=== PATIENT | male | born 1990 | race Caucasian/White ===

== ENCOUNTER → 2020-01-18 12:14 | Outpatient (CLI) | payer OTHER, SELFPAY ==
--- NOTE | ~2020-01-18 | XR_ITS ---
EXAMINATION: XR ankle LT min 3V DATE: 01/18/2020 12:54 INDICATION: Left ankle pain. TECHNIQUE: 4 views of left ankle were obtained. COMPARISON: None. FINDINGS: Pes planus is noted. No fracture. Joint spaces are normal. There is an enthesophyte at plan tar aspect of calcaneal tuberosity. IMPRESSION: 1. Pes planus. Reviewed, dictated and finalized at location A. IMPRESSION: 1. Pes planus.
== END ==
PROVIDERS: PCP Family Medicine; Visit Provider Family Medicine
DX: M25.572 Pain in left ankle and joints of left foot (principal); M21.42 Flat foot [pes planus] (acquired), left foot
CPT/HCPCS: 73610

== ENCOUNTER 2022-08-19 12:14 | Emergency (ER) | payer BC, SELFPAY ==
--- NOTE | 2022-08-19 12:20 | ED.SKABFB ---
HPI - Skin/Abscess/Foreign Bdy General Chief complaint: Skin/Abscess/Foreign Body Stated complaint: Rash Time Seen by Provider: 08/19/22 12:20 Source: patient Mode of arrival: ambulatory Limitations: no limitations History of Present Illness HPI narrative: patient is a 32-year-old male who presents with diffuse rash to trunk and bilateral arms for 1 week. Patient denies any pain or itching to rash. States it started on the right side of his upper abdomen and has spread. Denies any new detergents, soaps, clothing. Has not slept anywhere abnormal. Denies any shortness of breath, tongue swelling, lip swelling. Denies any fever, chills, nausea, vomiting, diarrhea. Has used Benadryl with no change in symptoms. Related Data Allergies Allergy/AdvReac Type Severity Reaction Status Date / Time No Known Allergies Allergy Verified 08/19/22 12:37 Review of Systems Review of Systems: All systems reviewed & are unremarkable except as noted in HPI and below Constitutional: Constitutional: Denies body ache(s), Denies chills, Denies fatigue, Denies fever(s), Denies headache(s), Denies malaise and Denies weakness Eyes: Eyes: Denies blurry vision, Denies irritation and Denies loss of vision ENT: Denies otalgia, Denies headache(s), Denies nasal discharge, Denies sinus pain and Denies sore throat Cardiovascular: Cardiovascular: Denies chest pain, Denies irregular heart rhythm and Denies dyspnea Respiratory: Respiratory: Denies dyspnea Gastrointestinal: Gastrointestinal: Denies abdominal pain, Denies melena, Denies hematochezia, Denies diarrhea, Denies nausea and Denies vomiting Musculoskeletal: Musculoskeletal: Denies back pain, Denies myalgias and Denies arthralgias Integumentary/Breasts: Skin/Breast: Denies pruritus and Reports rash Neurologic: Denies headache(s), Denies loss of vision and Denies weakness Psychiatric: Psychiatric: Reports no additional psychiatric complaints Endocrine: Endocrine: Denies fatigue PMFSH Comments At time of signature, agree with nursing past medical, surgical, social and family history. There is no relevant family history pertinent to the presenting complaint. Exam Const: General: cooperative, healthy appearing, comfortable, no acute distress and well nourished Nutritional Appearance: well nourished Orientation/consciousness: patient oriented x3 Limitations: no limitations HENMT: Head: normal to inspection, normocephalic and atraumatic Ears: hearing grossly normal bilaterally and external ears normal Face/Nose/Sinus: Normal external nose present, normal facial exam and face symmetric Face and sinus: normal facial exam and face symmetric Mouth: Yes lip normal Eyes: General: appearance normal, both eyes and all related structures Alignment and Position: alignment normal and position normal Periorbital: periorbital findings normal Eyelids: eyelids normal Pupils: Equal, round and reactive pupils present EOM: EOMs intact bilaterally Neck: Neck: normal visual inspection, full ROM and supple Chest: Chest palpation & inspection: normal inspection of the chest Resp: Effort & Inspection: normal respiratory effort and able to speak in complete sentences Auscultation: clear to auscultation bilaterally Cardio: Rate: regular rate Rhythm: regular rhythm Heart sounds: S1 normal heart sound present and S2 normal heart sound present GI: Inspection: normal to inspection Skin: General skin exam: normal color and no rashes or lesions noted Rashes: rashes noted ( Small, raised, scaly patches with sizes 0.5 cm to 1.5 cm ) patches diffuse full body arrangement ( clusters noted to right upper abdomen, diffuse across wrist of abdomen, back and upper extremities) clustered, borders raised, color red, morphology round and surface dry, erythematous, rough and scaly Neuro: General: patient oriented x3 and moves all extremities Cranial nerves: Yes Equal, round and reactive pupils present Speech: normal speech G
[2022-08-19 12:27] VITALS: BP 125/74; PULSE 64; RESP 16; TEMP 36.4; O2SAT 100
== END 2022-08-19 13:11 | disposition home or self-care (01) ==
PROVIDERS: Emergency Provider Nurse Practitioner Family
DX: L42 Pityriasis rosea (principal)
CPT/HCPCS: 87081; 87880; 99213; G0463

== ENCOUNTER 2024-12-15 13:24 | Emergency (ER) | payer BC, SELFPAY ==
[2024-12-15 13:32] VITALS: BP 131/93; PULSE 77; RESP 16; TEMP 36.3; O2SAT 100
--- NOTE | 2024-12-15 13:37 | ED_ITS ---
HPI - Extremity Problem General Chief complaint: Extremity Problem,Nontraumatic Stated complaint: R Foot Pain Time Seen by Provider: 12/15/24 13:37 Source: patient Mode of arrival: ambulatory Limitations: no limitations History of Present Illness HPI Narrative: 34-year-old male presented for complaint of right foot pain, redness and swelling over the midfoot. Worsening over the past 5 days. Denies known injury or overuse. Reports painful range of motion. Denies numbness, tingling or weakness of the foot. Has taken ibuprofen with minimal relief. Endorses a history of gout and plantar fasciitis. Denies changes to diet. Pt takes allopurinol for hx gout. Related Data Home Medications ?Medication ?Instructions ?Recorded ?Confirmed ?Last Taken ?Type allopurinol 100 mg tablet mg 12/15/24 12/15/24 Histor y Allergies Allergy/AdvReac Type Severity Reaction Status Date / Time No Known Allergies Allergy Verified 12/15/24 13:37 Review of Systems Review of Systems: CONSTITUTIONAL: Denies body aches, fever, chills EYES: Denies visual changes ENT: Denies rhinorrhea, congestion CARDIOVASCULAR: Denies chest pain, palpitations, or edema. RESPIRATORY: Denies cough or dyspnea. SKIN: Denies rash, itching, or wounds. MUSCULOSKELETAL: reports right foot pain redness and swelling NEUROLOGIC: Denies headache, numbness, tingling, or weakness. All systems reviewed & are unremarkable except as noted in HPI and below PMFSH Past Medical History Medical History (Updated 12/15/24 @ 13:53 by Miladis Gomes, SHYANN) Gout Comments At time of signature, I have reviewed and agree with nursing past medical, surgical, social and family history unless otherwise noted. Please see nursing chart for further information. There is no relevant family history pertinent to the presenting complaint Exam Narrative: GENERAL: Well-appearing CHEST: Speaks in full sentences. No respiratory distress. HEART: Regular rate and rhythm. Normal and equal peripheral pulses. EXTREMITIES: Right mid dorsal foot erythematous with moderate swelling, tender with palpation. Decreased ROM at ankle due to the foot pain. Foot has normal strength and sensation. No ecchymosis, No open wounds, or obvious deformity; alignment normal, pulse palpable and equal bilaterally, skin warm, dry, pink. Capillary refill less than 3 seconds. SKIN: Warm, dry, no rash. NEURO: Alert and oriented x3. PSYCH: Normal mood and affect Course Course Emergency Course: Patient is aware of diagnosis, understands and agrees to treatment plan. Anticipatory guidance given. Patient agrees to follow-up as directed and is aware of reasons to seek care at the emergency department. Portions of this record may have been created with voice recognition software Level of Care: Express Care Visit Vital Signs Vital signs: Vital Signs Temperature 97.3 F L 12/15/24 13:32 Pulse Rate 77 12/15/24 13:32 Respiratory Rate 16 12/15/24 13:32 Blood Pressure 131/93 H 12/15/24 13:32 Pulse Oximetry 100 12/15/24 13:32 Temperature 97.3 F L 12/15/24 13:32 Pulse Rate 77 12/15/24 13:32 Respiratory Rate 16 12/15/24 13:32 Blood Pressure 131/93 H 12/15/24 13:32 Pulse Oximetry 100 12/15/24 13:32 Reviewed MDM - Extremity (Nontraumatic) MDM Narrative Medical decision making narrative: Discussed physical exam findings. Advised supportive measures and signs/symptoms to go to the ER. Pt is appropriate for outpt treatment and f/u. Differential Diagnosis Differential diagnosis: Likely herpes zoster, gout, cellulitis, superficial thrombophlebitis, deep vein thrombosis of lower extremity and other (Plantar fasciitis, heel spur, foot strain/sprain, metatarsal fracture, metatarsalgia, palacio's neuroma) Discharge Plan Discharge Clinical Impression: Acute pain of right foot Patient Disposition: Home Condition: Stable Instructions: Antibiotic Form, Gout (ED) Additional Instructions: Gout is a form of inflammatory?arthritis that causes pain and swelling in your joints. A buildup of excess uric acid in your body causes gout. Your body naturally makes uric acid when it breaks down chemicals called purines found in certain foods and drinks. Your kidneys usually filter uric acid out of your blood. Gout symptoms come and go in episodes called flares or gout attacks.?Gout attac ks usually last a week or two. You might have some flares that last longer than others, and some might cause more severe symptoms. Between attacks, you might not experience any gout symptoms. Risks include: Parent/grandparent with gout Eating a lot of animal proteins ? especially animal flesh, shellfish and foods that contain organ meat. Drinking alcohol regularly. Taking a diuretic medication (water pills). Taking immunosuppressants Take medication as directed You can take tylenol for pain as needed Recommend low purine diet Rest and elevate the right foot Follow up with primary care provider in 1 week Go to the ER for worsening symptoms or concerns Patient Language: Maltese Prescriptions: New prednisone 20 mg tablet 20 mg PO DAILY Qty: 18 0RF Rx Instructions: take 3 tablets daily for 3 days, then 2 tablets daily for 3 days then 1 tablet daily for 3 days Discontinued prednisone 20 mg tablet 20 mg PO DAILY 7 Days Qty: 7 0RF No Action acyclovir 800 mg tablet 800 mg PO Q4H 7 Days Qty: 35 0RF Rx Instructions: take 1 tablet 5 times a day for 7 days allopurinol 100 mg tablet Follow-up/Referrals: Timothy,SHOAIB Wolf [Primary Care Provider, Unknown] Time of Disposition: 13:51
== END 2024-12-15 13:58 | disposition home or self-care (01) ==
PROVIDERS: Emergency Provider Nurse Practitioner Family; PCP Physician Assistant
DX: M79.671 Pain in right foot (principal); M10.9 Gout, unspecified
CPT/HCPCS: 99213; G0463